=== PATIENT | female | born 1995 | race Two or more races ===

== ENCOUNTER 2017-03-16 13:35 | Emergency (ER) | payer BC ==
[~2017-03-16] VITALS: Ht 157.5 cm; Wt 59.0 kg
[2017-03-16 13:40] VITALS: BP 118/92
== END 2017-03-16 14:09 | disposition home or self-care (01) ==
LOC: ER 13:37
DX: H60.92 Unspecified otitis externa, left ear (principal)
CPT/HCPCS: 99283; A4606; Z7610

== ENCOUNTER 2020-07-06 19:54 | Emergency (ER) | payer BC, MEDICAID ==
[~2020-07-06] VITALS: Ht 157.5 cm; Wt 47.6 kg
[2020-07-06] MEDS ORDERED: IBUPROFEN 600 MG TABLET ONE (20:20)
--- NOTE | 2020-07-06 20:21 | NUR ---
RADIOLOGY AT BEDSIDE
[2020-07-06 20:30] VITALS: BP 130/76
[2020-07-06] MEDS ORDERED: IBUPROFEN 600 MG TABLET PO ONE (20:30)
== END 2020-07-06 21:47 | disposition home or self-care (01) ==
LOC: ER 19:58
DX: S60.032A Contusion of left middle finger without damage to nail, initial encounter (principal); W23.0XXA Caught, crushed, jammed, or pinched between moving objects, initial encounter; Y93.89 Activity, other specified; Y92.89 Other specified places as the place of occurrence of the external cause; Y99.8 Other external cause status
CPT/HCPCS: 73140-TC